=== PATIENT | male | born 1995 | race Caucasian/White ===

== ENCOUNTER 2023-10-16 09:50 | Emergency (ER) | payer SELFPAY ==
--- NOTE | ~2023-10-16 | US_ITS ---
EXAMINATION: US ABDOMEN LIMITED CLINICAL INFORMATION: Right upper quadrant tenderness. COMPARISON: None available. TECHNIQUE: Real-time imaging of the appendix, gallbladder and common bile duct FINDINGS: The gallbladder is normal appearing. No gallstones. The gallbladder wall is normal. No pericholecystic fluid. Common bile duct measures 0.3 cm. Appendix not seen. US/US abdomen limited IMPRESSION: Normal gallbladder. Appendix not seen.
--- NOTE | ~2023-10-16 | CT_ITS ---
EXAMINATION: CT ABDOMEN AND PELVIS WITH CONTRAST CLINICAL INFORMATION: Right lower quadrant tenderness, nausea and vomiting COMPARISON: None available. TECHNIQUE: Multidetector volumetric images were obtained from the superior aspect of the liver through the pubic symphysis following administration 85 mL of Omnipaque 350 intravenous contrast. Sagittal and coronal reformatted images were obtained on the technologist's workstation. Oral contrast: Yes This CT examination was performed using dose optimization techniques as appropriate, variously including the following: *Automated exposure control *Adjustment of mA and/or kV according to patient size (this includes techniques or standardized protocols for targeted exams where dose is matched to indication/reason for exam; i.e. extremities or head) *Use of iterative reconstruction technique DLP: 849 mGy-cm FINDINGS: LUNG BASES: The visualized lung bases are unremarkable. LIVER, GALLBLADDER, AND BILIARY TREE: The liver is normal in size, shape, and attenuation. No focal hepatic lesion or biliary ductal dilatation is present. The gallbladder is unremarkable with no evidence of radiopaque gallstones, gallbladder wall thickening, or obvious pericholecystic inflammatory changes. PANCREAS: Unremarkable. SPLEEN: Unremarkable. ADRENAL GLANDS: Unremarkable. KIDNEYS AND URETERS: The kidneys are normal in size, shape, and attenuation. No hydronephrosis, hydroureter, or calculi seen. Excreted contrast in both renal collecting systems. This lowers sensitivity for detection of small stone. No perinephric stranding. BLADDER: Unremarkable. GASTROINTESTINAL TRACT: The small and large bowel are unremarkable. The appendix is unremarkable. ABDOMINAL WALL: No significant hernia is appreciated. LYMPH NODES: Normal. VASCULAR: Unremarkable. PELVIC VISCERA: Unremarkable. OSSEOUS STRUCTURES: Unremarkable. CT/CT abdomen pelvis w IV con IMPRESSION: Unremarkable exam. Normal-appearing appendix. Fleischner guidelines were followed.
--- NOTE | 2023-10-16 09:56 | ED_ITS ---
HPI - General Adult General Chief complaint: Abdominal Pain Stated complaint: vomiting Time Seen by Provider: 10/16/23 09:55 Source: patient and family Mode of arrival: ambulatory Limitations: no limitations History of Present Illness ED Provider: omar KNOWLES narrative: Patient is a 28-year-old male with history of cannabinoid hyperemesis syndrome 8-10 years ago presenting to the emergency department with 2 days nausea, vomiting, and right upper quadrant abdominal pain. Denies diarrhea or constipation. Denies fevers. Denies chest pain, cough, dyspnea. No other sick family members at home. States pain began mid day on Thursday. Only had yogurt for breakfast that day. Denies history of abdominal surgeries in the past. Denies dysuria, hematuria, urgency or any other urinary symptoms. Denies back pain. has not been smoking marijuana until this august 07, but has been smoking multiple times a day since then and just stopped on Thursday when symptoms began. Symptoms improve with hot showers. MD complaint: Abdominal pain, vomiting Onset (ago): day(s) Location: abdomen Radiation: non-radiation Severity: moderate Severity scale (1-10): 5 Quality: aching Pain Consistency: colicky Relieving factors: none Exacerbating factors: none Associated symptoms: nausea/vomiting Treatments prior to arrival: none Related Data Previous Rx's ?Medication ?Instructions ?Recorded ondansetron 4 mg disintegrating 4 mg PO Q8H PRN nausea and 10/16/23 tablet vomiting #10 tabs Allergies Allergy/AdvReac Type Severity Reaction Status Date / Time amoxicillin [AMOXICILLIN] Allergy Unknown UNKNOWN Verified 10/16/23 10:02 Penicillins [PENICILLINS] Allergy Unknown UNKNOWN Verified 10/16/23 10:02 Review of Systems 2 Review of Systems: As per HPI. Yes all other systems are reviewed and are negative Constitutional: Constitutional: Reports as per HPI [facility] Social History Social History Advance Directives: No Advance Directives Information Provided: No Do you have a plan to hurt others: No Plan Physical Exam ED Vital Signs: Vital Signs - 24 hr 10/16/23 10:01 10/16/23 13:08 Temperature 98.1 F 98.4 F Pulse Rate 78 56 Respiratory Rate 16 22 H Blood Pressure 133/80 97/46 L Pulse Oximetry 98 98 Oxygen Delivery Method Room Air Room Air BMI result Body Mass Index 29.5 Vital signs have been reviewed and appear to be correct. Blood pressure normal. Heart rate normal. Respiratory rate normal. Temperature normal. Oxygen saturation normal. Const General: cooperative, healthy appearing and no acute distress Orientation/consciousness: oriented to person, oriented to place, oriented to time and patient oriented x3 Limitations: no limitations [facility] Head: Yes normocephalic and Yes atraumatic Ears: external ears normal General nose exam: Normal external nose present Face and sinus: Yes face symmetric Mouth: oropharynx normal and moist mucous membranes Throat: Yes uvula midline Eyes Pupils: Equal, round and reactive pupils present Neck Neck: Yes normal visual inspection and Yes supple Resp Effort & Inspection: normal respiratory effort and able to speak in complete sentences Auscultation: clear to auscultation bilaterally Cardio Rate: regular rate Rhythm: regular rhythm Heart sounds: S1 normal heart sound present and S2 normal heart sound present GI Inspection: Yes normal to inspection Palpation (GI): Soft to palpation, Tenderness to palpation present (GI) in the RLQ and in the RUQ, no guarding and No Rebound tenderness present Auscultation: normoactive bowel sounds General: Yes no CVA tenderness Back/Spine/Pelvis Back: no CVA tenderness Skin General skin exam: elasticity normal and turgor normal Neuro General: oriented to person, oriented to place, oriented to time, patient oriented x3, moves all extremities, no focal motor deficits and CN's II-XI intact bilaterally Cranial nerves: Yes Equal, round and reactive pupils present Cognition (Neuro): normal cognition Extrem General: Yes full ROM, Yes no pedal edema and Yes no calf tenderness Psych Mental Status: mental status grossly normal Affect: normal affect Thought process: Normal thought process present Medications Administered Discontinued Medications Generic Name Dose Route Start Last Admin Trade Name Bhakti PRN Reason Stop Dose Admin Sodium Chloride 1,000 mls @ 999 mls/hr 10/16/23 10:15 10/16/23 11:34 Ns IV 10/16/23 11:15 Infused .Q1H1M HIRO Infusion Iohexol 100 ml 10/16/23 13:43 10/16/23 13:44 Iohexol 350 Mg/Ml 100 Ml Infus..Btl IV 10/16/23 13:44 85 ml ONCE ONE Administration Morphine Sulfate 4 mg 10/16/23 10:12 10/16/23 10:29 Morphine Sulfate 4 Mg/Ml Cartridge IVPUSH 10/16/23 10:13 Not Given ONCE ONE Protocol Morphine Sulfate 4 mg 10/16/23 10:49 10/16/23 10:59 Morphine Sulfate 4 Mg/Ml Cartridge IVPUSH 10/16/23 10:50 4 mg ONCE ONE Administration Protocol Ondansetron HCl 4 mg 10/16/23 10:12 10/16/23 10:29 Ondansetron Hcl 4 Mg/2 Ml Vial IVPUSH 10/16/23 10:13 4 mg ONCE ONE Administration Medical Decision Making Medical Decision Making [facility] Narrative: Patient is a 28-year-old male with history of cannabinoid hyperemesis syndrome 8-10 years ago presenting to the emergency department with 2 days nausea, vomiting, and right upper quadrant abdominal pain. On exam patient is awake, A+Ox3, VS WNL, afebrile, normal neurological exam without focal deficits, physical exam findings as above. Given reported symptoms and physical exam findings, initial differential includes cholecystitis, appendicitis, CHS, gastritis, viral illness, cannabinoid hyperemesis syndrome. Labs notable for no leukocytosis, no anemia, mildly elevated Tbili, normal transaminases, negative troponin. Viral serology negative. Ultrasound notable for normal gallbladder and CBD, appendix not visualized. CT notable for unremarkable abdominal exam with normal appendix. My interpretation is in agreement with the radiologist's interpretation. Patient updated on results and all questions answered. Discussed with patient that he should refrain from using marijuana as this seems to exacerbate his symptoms. Discussed warm showers and topical capsaicin cream. Return precautions discussed. Patient verbalized understanding of and agreement with plan. Differential Diagnosis Differential Diagnoses: The differential diagnosis associated with the presentation includes As per [facility] Admission/Observation Consideration of admission/observation: Escalation of care including admission/observation considered Patient would have been admitted to the hospital had their work up had any findings where hospital admission was appropriate and their clinical presentation warranted hospital admission. Lab Data [facility] Lab Attestation statement: I reviewed the patient's lab results. As per [facility]. 10/16/23 10:08 10/16/23 10:08 Labs: Lab Results 10/16/23 10/16/23 Range/Units 10:08 10:48 WBC 10.8 (4.8-10.8) X10*3/uL RBC 5.38 (4.60-5.80) X10*6/uL Hgb 16.8 (14.0-18.0) g/dl Hct 47.6 (42.0-52.0) % MCV 88.5 (80.0-98.0) fL MCH 31.2 (27.0-33.0) pg MCHC 35.3 (31.0-36.0) g/dl RDW 13.1 (11.0-16.0) % Plt Count 218 (160-400) X10*3/uL MPV 11.6 (9.4-12.4) fL Immature Gran % (Auto) 0.3 (0.0-0.4) % Neut % (Auto) 78.3 H (45-73) % Lymph % (Auto) 16.0 L (20-40) % [place] % (Auto) 5.2 (2-11) % Eos % (Auto) 0.0 (0-4) % Baso % (Auto) 0.2 (0-2) % Lymph # (Auto) 1.7 (1.2-4.9) X10*3/uL [place] # (Auto) 0.6 (0.1-1.2) X10*3/uL Eos # (Auto) 0.0 (0.0-0.4) X10*3/uL Baso # (Auto) 0.0 (0.0-0.2) X10*3/uL Abs Immat Gran (auto) 0.03 (0.00-0.03) X10*3/uL Absolute Neuts (auto) 8.4 H (2.0-8.3) x10*3/uL Absolute Nucleated RBC 0.000 (0.0-0.012) X10*3/uL Nucleated RBC % (auto) 0.0 (0.0-0.2) /100WBC Sodium 141 (135-145) mmol/L Potassium 4.1 (3.3-5.1) mmol/L Chloride 103 (96-108) mmol/L Carbon Dioxide 26 (22-29) mmol/L Anion Gap 16 (12-20) BUN 19 H (9-16) mg/dL Creatinine 1.07 (0.5-1.4) mg/dL Estim Creat Clear Calc 138.3 Estimated GFR > 60 Random Glucose 113 (60-115) mg/dL Calcium 9.8 (8.4-10.2) mg/dL Total Bilirubin 1.3 H (0.0-1.0) mg/dL AST 17 (5-37) U/L ALT 25 (0-40) U/L Alkaline Phosphatase 72 (39-117) U/L Troponin I High Sens < 2.7 (<3.5-35.0) ng/L Total Protein 8.0 (6.5-8.0) g/dL Albumin 4.7 (3.5-5.0) g/dL Lipase 26 (8-78) U/L Influenza Type A (PCR) NEGATIVE (Negative) Influenza Type B (PCR) NEGATIVE (Negative) RSV RNA Qual (PCR) NEGATIVE (Negative) SARS-CoV-2 RNA (RT-PCR) NEGATIVE (Negative) Independent Interpretation I performed an independent interpretation of an: Ultrasound and CT Scan Interpretation: Normal gallbladder and CBD on U/S No evidence of appendicitis on CT A/P Radiology Impression Discussion of test interpretation with radiology: I have reviewed the radiologist's reading. Radiologist Impression: US/US abdomen limited IMPRESSION: Normal gallbladder. Appendix not seen. CT/CT abdomen pelvis w IV con IMPRESSION: Unremarkable exam. Normal-appearing appendix. Fleischner guidelines were followed. External Record Review External record reviewed: Inpatient record, Office record and Outpatient record Discharge Plan Discharge Clinical Impression: Nausea & vomiting Patient Disposition: Home, Self-Care Instructions: Acute Nausea and Vomiting (ED), Cyclic Vomiting Syndrome (ED) Additional Instructions: You were evaluated in the emergency department today for abdominal pain, nausea, and vomiting which is likely due to your cannabis use. We advised avoiding this to prevent ongoing symptoms. We recommend hot showers as well as topical capsaicin cream. You are being prescribed ondansetron which you can take every 8 hours as needed for nausea. Follow up with your primary care provider. Return to the ED with worsening abdominal pain, persistent vomiting, blood in your vomit or stool, fever or any other concerning symptoms. Prescriptions: New ondansetron 4 mg tablet,disintegrating 4 mg PO Q8H PRN (Reason: nausea and vomiting) Qty: 10 0RF Print Language: Citizen [place]
[2023-10-16 10:01] VITALS: BP 133/80; PULSE 78; RESP 16; TEMP 36.7; O2SAT 98; BMI 29.5
--- NOTE | 2023-10-16 10:12 | PC.NURSE ---
a&ox4. vss and up to date. nsr on the manager cardiac. pt presents to ED w/ nonstop vomiting and abd pain x 2 days. abd tender in RUQ upon palpation. pt also verbalizing decreased PO intake. denies diarrhea/hematochezia. pt currently not actively vomiting. 20gIV placed in the left AC - labs obtained/sent to lab. pt seen by ED provider/aware of plan of care moving forward. no sob/wob noted. respirations even/unlabored. plan of care ongoing. call pemberton placed within reach.
[2023-10-16 10:13] LABS: MANUAL DIFF FLAG NO
[2023-10-16 10:14] LABS: Basophils Percent Auto 0.2 % (0-2); Hematocrit 47.6 % (42.0-52.0); Hemoglobin 16.8 g/dl (14.0-18.0); Imm Gran Abs Auto 0.03 X10*3/uL (0.00-0.03); Imm Gran Pct Auto 0.3 % (0.0-0.4); Lymphocytes Absolute Auto 1.7 X10*3/uL (1.2-4.9); Mean Corpuscular HGB Conc 35.3 g/dl (31.0-36.0); Mean Corpuscular Hemoglobin 31.2 pg (27.0-33.0); Mean Corpuscular Volume 88.5 fL (80.0-98.0); Mean Platelet Volume 11.6 fL (9.4-12.4); Monocytes Absolute Auto 0.6 X10*3/uL (0.1-1.2); Monocytes Percent Auto 5.2 % (2-11); Neutrophils Absolute Auto 8.4 x10*3/uL (2.0-8.3); Neutrophils Percent Auto 78.3 % (45-73); Platelet Count 218 X10*3/uL (160-400); Red Blood Count 5.38 X10*6/uL (4.60-5.80); Red Cell Distribution Width 13.1 % (11.0-16.0); White Blood Count 10.8 X10*3/uL (4.8-10.8)
[2023-10-16 10:28] LABS: Alanine Aminotransferase 25 U/L (0-40); Albumin Level 4.7 g/dL (3.5-5.0); Alkaline Phosphatase 72 U/L (39-117); Anion Gap 16 (12-20); Aspartate Amino Transferase 17 U/L (5-37); Bilirubin Total 1.3 mg/dL (0.0-1.0); Blood Urea Nitrogen 19 mg/dL (9-16); Calcium 9.8 mg/dL (8.4-10.2); Carbon Dioxide 26 mmol/L (22-29); Chloride 103 mmol/L (96-108); Creatinine Clr Calc Pharmacy 138.3; Estimated Glomerular Filt Rate > 60; Glucose Random 113 mg/dL (60-115); Lipase 26 U/L (8-78); Potassium 4.1 mmol/L (3.3-5.1); Sodium 141 mmol/L (135-145)
[2023-10-16] MEDS: ondansetron HCL 4 MG/2 ML VIAL IVPUSH (10:29)
[2023-10-16] MEDS: 0.9 % Sodium Chloride 1,000 ML 999 ML IV (10:29)
[2023-10-16 10:37] LABS: Troponin-I High Sensitivity < 2.7 ng/L (<3.5-35.0)
--- NOTE | 2023-10-16 10:42 | PC.NURSE ---
IVF/medication administered per provider order. pt refused morphine - states that the pain was not that intense/didn't want it at this time. med returned to susu Hernandez RN.
[2023-10-16] MEDS: Morphine Sulfate 4 MG/ML CARTRIDGE IVPUSH (10:59)
--- NOTE | 2023-10-16 11:11 | PC.NURSE ---
despite previously refusing morphine administration. pt now c/o increased in abd pain. rating it a 10/10. provider notified/aware. medication administered per provider order. effectiveness pending. ultrasound being completed at this time.
[2023-10-16 11:33] LABS: Influenza A PCR NEGATIVE (Negative); Influenza B PCR NEGATIVE (Negative); Resp Syncy Virus RNA Qual PCR NEGATIVE (Negative); SARS COV2 PCR INHOUSE NEGATIVE (Negative)
[2023-10-16 13:08] VITALS: BP 97/46; PULSE 56; RESP 22; TEMP 36.9; O2SAT 98
[2023-10-16] MEDS: iohexoL 350 MG/ML 100 ML INFUS..BTL IV (13:44)
[2023-10-16 16:11] VITALS: BP 135/79; PULSE 59; RESP 18; O2SAT 99
[2023-10-16 16:17] VITALS: BP 135/79; PULSE 59; RESP 18; TEMP 36.9; O2SAT 99
== END 2023-10-16 16:17 | disposition home or self-care (01) ==
PROVIDERS: Registered Nurse Emergency; Emergency Provider Emergency Medicine
DX: R10.11 Right upper quadrant pain (principal); R11.2 Nausea with vomiting, unspecified; Z03.818 Encounter for observation for suspected exposure to other biological agents ruled out; Z79.899 Other long term (current) drug therapy
CPT/HCPCS: 0241U; 36415; 74177; 76705; 80053; 83690; 84484; 85025; 96361; 96374; 96375; 99284; J2270; J2405; Q9967

== ENCOUNTER 2023-10-17 13:32 | Emergency (ER) | payer SELFPAY ==
[2023-10-17 13:57] VITALS: BP 141/71; PULSE 64; RESP 26; TEMP 36.3; O2SAT 100; BMI 32.9
--- NOTE | 2023-10-17 13:57 | ED.NAVMDI ---
HPI - Nausea/Vomiting/Diarrhea General Chief complaint: Abdominal Pain Stated complaint: vomiting Time Seen by Provider: 10/17/23 21:26 Related Data Previous Rx's ?Medication ?Instructions ?Recorded ondansetron 4 mg disintegrating 4 mg PO Q8H PRN nausea and 10/16/23 tablet vomiting #10 tabs Allergies Allergy/AdvReac Type Severity Reaction Status Date / Time amoxicillin [AMOXICILLIN] Allergy Unknown UNKNOWN Verified 10/17/23 13:58 Penicillins [PENICILLINS] Allergy Unknown UNKNOWN Verified 10/17/23 13:58 [facility] Social History Social History Advance Directives: No Do you have a plan to hurt others: No Plan Physical Exam Vital Signs: Vital Signs: Last Vital Signs Temp 98.2 F 10/17/23 19:37 Pulse 71 10/17/23 19:37 Resp 18 10/17/23 19:37 BP 154/93 H 10/17/23 19:37 Pulse Ox 98 10/17/23 19:37 O2 Del Method Room Air 10/17/23 19:37 BMI result Body Mass Index 32.9 Course Course Course Narrative: This is a Rapid Medical Examination (RME) performed by Jenny Jason PA-C in triage. Full HPI, ROS, assessment and treatment plan per primary provider in the Main ED. 28-year-old male with history of cannabinoid hyperemesis syndrome 8-10 years ago presents to ED with 3 days nausea, vomiting, and right upper quadrant abdominal pain. seen here yest for same with unremarkable work up, discharged home with zofran. 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 reports previous daily marijuana use however has not smoked since Thursday (4 days ago) d/t symptoms. actively dry heaving in triage. ttp of epigastric region. no rebound or guarding. Plan: labs, UA, uds Reevaluation(s) Reevaluation #1: Patient left the ED without completing treatment. Medications Administered Discontinued Medications Generic Name Dose Route Start Last Admin Trade Name Freq PRN Reason Stop Dose Admin Ondansetron HCl 4 mg 10/17/23 13:58 10/17/23 14:01 Ondansetron Odt 4 Mg Tab.Rapdis TRANSLINGU 10/17/23 13:59 4 mg ONCE ONE Administration Medical Decision Making Medical Decision Making [facility] Narrative: eloped Lab Data 10/17/23 14:29 10/17/23 14:29 Labs: Lab Results 10/17/23 10/17/23 Range/Units 14:29 18:06 WBC 15.2 H (4.8-10.8) X10*3/uL RBC 5.45 (4.60-5.80) X10*6/uL Hgb 17.0 (14.0-18.0) g/dl Hct 47.8 (42.0-52.0) % MCV 87.7 (80.0-98.0) fL MCH 31.2 (27.0-33.0) pg MCHC 35.6 (31.0-36.0) g/dl RDW 13.0 (11.0-16.0) % Plt Count 227 (160-400) X10*3/uL MPV 11.4 (9.4-12.4) fL Immature Gran % (Auto) 0.6 H (0.0-0.4) % Neut % (Auto) 76.2 H (45-73) % Lymph % (Auto) 17.2 L (20-40) % [place] % (Auto) 4.9 (2-11) % Eos % (Auto) 0.6 (0-4) % Baso % (Auto) 0.5 (0-2) % Lymph # (Auto) 2.6 (1.2-4.9) X10*3/uL [place] # (Auto) 0.8 (0.1-1.2) X10*3/uL Eos # (Auto) 0.1 (0.0-0.4) X10*3/uL Baso # (Auto) 0.1 (0.0-0.2) X10*3/uL Abs Immat Gran (auto) 0.09 H (0.00-0.03) X10*3/uL Absolute Neuts (auto) 11.6 H (2.0-8.3) x10*3/uL Absolute Nucleated RBC 0.000 (0.0-0.012) X10*3/uL Nucleated RBC % (auto) 0.0 (0.0-0.2) /100WBC Sodium 139 (135-145) mmol/L Potassium 3.5 (3.3-5.1) mmol/L Chloride 105 (96-108) mmol/L Carbon Dioxide 21 L (22-29) mmol/L Anion Gap 17 (12-20) BUN 20 H (9-16) mg/dL Creatinine 1.06 (0.5-1.4) mg/dL Estim Creat Clear Calc 131.7 Estimated GFR > 60 Random Glucose 102 (60-115) mg/dL Calcium 9.9 (8.4-10.2) mg/dL Magnesium 1.9 (1.6-2.6) mg/dL Total Bilirubin 1.7 H (0.0-1.0) mg/dL AST 20 (5-37) U/L ALT 27 (0-40) U/L Alkaline Phosphatase 75 (39-117) U/L Total Protein 8.0 (6.5-8.0) g/dL Albumin 4.8 (3.5-5.0) g/dL Lipase 50 (8-78) U/L Urine Color Dark Yellow Urine Appearance Clear Urine pH 6.5 (5.0-9.0) Ur Specific [place] >= 1.030 H (1.005-1.025) Urine Protein Trace (Neg-Trace) mg/dL Urine Glucose (UA) Negative (Negative) mg/dL Urine Ketones 80 (Negative) mg/dL Urine Blood Negative (Negative) Urine Nitrite Negative (Negative) Ur Leukocyte Esterase Trace H (Negative) Urine RBC 0-2 (0-2) /HPF Urine WBC 0-5 (0-5) /HPF Ur Squamous Epith Cells 0-2 (0-2) /HPF Urine Bacteria None Seen (None Seen) Hyaline Casts 3-5 (0-2) /LPF Urine Opiates Screen POSITIVE H (Not Detect) Ur Buprenorphine Scrn Not Detected (Not Detect) ng/mL Ur Oxycodone Screen Not Detected (Not Detect) ng/mL Urine Methadone Screen Not Detected (Not Detect) ng/mL Urine Fentanyl Screen Not Detected (Not Detect) Ur Barbiturates Screen Not Detected (Not Detect) Ur Phencyclidine Scrn Not Detected (Not Detect) Ur Amphetamines Screen Not Detected (Not Detect) U Benzodiazepines Scrn Not Detected (Not Detect) Urine Cocaine Screen POSITIVE H (Not Detect) U Marijuana (THC) Screen POSITIVE H (Not Detect) Ethyl Alcohol < 10 mg/dL Discharge Plan Discharge Clinical Impression: Vomiting Patient Disposition: Left W/O Completing Treatment Prescriptions: No Action ondansetron 4 mg tablet,disintegrating 4 mg PO Q8H PRN (Reason: nausea and vomiting) Qty: 10 0RF Interventions: LWBS Worksheet Last Done: 10/17/23 22:10 Discharge Date/Time: 10/17/23 22:10 Print Language: Wallisian
[2023-10-17] MEDS: Ondansetron ODT 4 MG TAB.RAPDIS TRANSLINGU (14:01)
[2023-10-17 14:37] LABS: Basophils Absolute Auto 0.1 X10*3/uL (0.0-0.2); Basophils Percent Auto 0.5 % (0-2); Eosinophils Absolute Auto 0.1 X10*3/uL (0.0-0.4); Eosinophils Percent Auto 0.6 % (0-4); Hematocrit 47.8 % (42.0-52.0); Imm Gran Abs Auto 0.09 X10*3/uL (0.00-0.03); Imm Gran Pct Auto 0.6 % (0.0-0.4); Lymphocytes Absolute Auto 2.6 X10*3/uL (1.2-4.9); Lymphocytes Percent Auto 17.2 % (20-40); MANUAL DIFF FLAG NO; Mean Corpuscular HGB Conc 35.6 g/dl (31.0-36.0); Mean Corpuscular Hemoglobin 31.2 pg (27.0-33.0); Mean Corpuscular Volume 87.7 fL (80.0-98.0); Mean Platelet Volume 11.4 fL (9.4-12.4); Monocytes Absolute Auto 0.8 X10*3/uL (0.1-1.2); Monocytes Percent Auto 4.9 % (2-11); Neutrophils Absolute Auto 11.6 x10*3/uL (2.0-8.3); Neutrophils Percent Auto 76.2 % (45-73); Platelet Count 227 X10*3/uL (160-400); Red Blood Count 5.45 X10*6/uL (4.60-5.80); White Blood Count 15.2 X10*3/uL (4.8-10.8)
[2023-10-17 15:02] LABS: Alanine Aminotransferase 27 U/L (0-40); Albumin Level 4.8 g/dL (3.5-5.0); Alkaline Phosphatase 75 U/L (39-117); Anion Gap 17 (12-20); Aspartate Amino Transferase 20 U/L (5-37); Bilirubin Total 1.7 mg/dL (0.0-1.0); Blood Urea Nitrogen 20 mg/dL (9-16); Calcium 9.9 mg/dL (8.4-10.2); Carbon Dioxide 21 mmol/L (22-29); Chloride 105 mmol/L (96-108); Creatinine Clr Calc Pharmacy 131.7; Estimated Glomerular Filt Rate > 60; Glucose Random 102 mg/dL (60-115); Lipase 50 U/L (8-78); Magnesium 1.9 mg/dL (1.6-2.6); Potassium 3.5 mmol/L (3.3-5.1); Sodium 139 mmol/L (135-145)
[2023-10-17 15:03] LABS: Ethanol < 10 mg/dL
[2023-10-17 17:22] VITALS: BP 153/93; PULSE 71; RESP 16; TEMP 37; O2SAT 100
[2023-10-17 18:13] LABS: Appearance Urine Clear; Color Urine Dark Yellow; Glucose Urine UA Negative (Negative); Leukocyte Esterase Urine Trace (Negative); Nitrite Urine Negative (Negative); PH 6.5 (5.0-9.0); Specific Gravity - Urine >= 1.030 (1.005-1.025); UMIC TRIGGER UACC YES; Urine Blood Negative (Negative); Urine Ketones 80 mg/dL (Negative); Urine Protein Trace mg/dL (Neg-Trace)
[2023-10-17 18:23] LABS: Amphetamine Screen Urine Not Detected (Not Detect); Barbiturates, Urine Not Detected (Not Detect); Benzodiazepines Screen Urine Not Detected (Not Detect); Buprenorphine Scr Not Detected (Not Detect); Cannabinoid Screen Urine POSITIVE (Not Detect); Cocaine Screen Urine POSITIVE (Not Detect); Fentanyl, urine Not Detected (Not Detect); Methadone Screen, Urine Not Detected (Not Detect); Opiate Screen Urine POSITIVE (Not Detect); Oxycodone Screen Urine Not Detected (Not Detect); Phencyclidine Screen Urine Not Detected (Not Detect)
[2023-10-17 18:26] LABS: Bacteria Urine None Seen (None Seen); RBC Urine 0-2 /HPF (0-2); Squamous Epithelial Cell Urine 0-2 /HPF (0-2); WBC Urine 0-5 /HPF (0-5)
[2023-10-17 19:37] VITALS: BP 154/93; PULSE 71; RESP 18; TEMP 36.8; O2SAT 98
--- NOTE | 2023-10-17 21:59 | PC.NURSE ---
Pt requests IV removal as he wants to go home I have been here too long . I just want to go home. Educated on importance of staying however he requests to leave at this time. IV removed. P trefeused vitals
== END 2023-10-17 22:10 | disposition left against medical advice (07) ==
PROVIDERS: Physician Assistant Medical; Emergency Provider Emergency Medicine
DX: R11.2 Nausea with vomiting, unspecified (principal); R10.11 Right upper quadrant pain; F12.90 Cannabis use, unspecified, uncomplicated; Z79.899 Other long term (current) drug therapy
CPT/HCPCS: 36415; 80053; 80307; 81001; 83690; 83735; 85025; 99283; 99284

== ENCOUNTER 2023-10-19 08:05 | Emergency (ER) | payer SELFPAY ==
[2023-10-19 08:07] VITALS: BP 157/106; PULSE 58; RESP 16; TEMP 36.8; O2SAT 98; BMI 29.5
[2023-10-19] MEDS: Ondansetron ODT 4 MG TAB.RAPDIS TRANSLINGU (08:13)
[2023-10-19 09:14] LABS: MANUAL DIFF FLAG NO
[2023-10-19 09:22] LABS: Basophils Percent Auto 0.3 % (0-2); Eosinophils Percent Auto 0.1 % (0-4); Hematocrit 47.9 % (42.0-52.0); Hemoglobin 16.7 g/dl (14.0-18.0); Imm Gran Abs Auto 0.05 X10*3/uL (0.00-0.03); Imm Gran Pct Auto 0.4 % (0.0-0.4); Lymphocytes Absolute Auto 1.6 X10*3/uL (1.2-4.9); Lymphocytes Percent Auto 12.7 % (20-40); Mean Corpuscular HGB Conc 34.9 g/dl (31.0-36.0); Mean Corpuscular Hemoglobin 31.3 pg (27.0-33.0); Mean Corpuscular Volume 89.7 fL (80.0-98.0); Mean Platelet Volume 11.7 fL (9.4-12.4); Monocytes Absolute Auto 0.5 X10*3/uL (0.1-1.2); Monocytes Percent Auto 3.6 % (2-11); Neutrophils Absolute Auto 10.4 x10*3/uL (2.0-8.3); Neutrophils Percent Auto 82.9 % (45-73); Platelet Count 219 X10*3/uL (160-400); Red Blood Count 5.34 X10*6/uL (4.60-5.80); Red Cell Distribution Width 12.8 % (11.0-16.0); White Blood Count 12.6 X10*3/uL (4.8-10.8)
[2023-10-19 09:35] LABS: Alanine Aminotransferase 24 U/L (0-40); Albumin Level 4.5 g/dL (3.5-5.0); Alkaline Phosphatase 72 U/L (39-117); Anion Gap 13 (12-20); Aspartate Amino Transferase 18 U/L (5-37); Bilirubin Total 1.3 mg/dL (0.0-1.0); Blood Urea Nitrogen 15 mg/dL (9-16); Carbon Dioxide 24 mmol/L (22-29); Chloride 106 mmol/L (96-108); Creatinine Clr Calc Pharmacy 142.3; Estimated Glomerular Filt Rate > 60; Glucose Random 112 mg/dL (60-115); Sodium 139 mmol/L (135-145); Total Protein 7.7 g/dL (6.5-8.0)
--- NOTE | 2023-10-19 11:08 | MHC.EDTECH ---
This tech attempted to collect urine sample from patient. Patient stated unable to provide sample at this time. Hospital gown provided to patient, with a urinal at bedside as well as a urine cup with instructions to provide sample as soon as they felt able.
--- NOTE | 2023-10-19 11:14 | ED.GENADULT ---
HPI - General Adult General Chief complaint: Abdominal Pain Stated complaint: vomiting Time Seen by Provider: 10/19/23 11:01 Source: patient and family Mode of arrival: ambulatory Limitations: no limitations History of Present Illness ED Provider: Dr. Blount Related Data Previous Rx's ?Medication ?Instructions ?Recorded ondansetron 4 mg disintegrating 4 mg PO Q8H PRN nausea and 10/16/23 tablet vomiting #10 tabs metoclopramide HCl 10 mg tablet 10 mg PO Q6H PRN nausea and 10/19/23 (Reglan) vomiting #14 tabs Allergies Allergy/AdvReac Type Severity Reaction Status Date / Time amoxicillin [AMOXICILLIN] Allergy Unknown UNKNOWN Verified 10/19/23 08:10 Penicillins [PENICILLINS] Allergy Unknown UNKNOWN Verified 10/19/23 08:10 [facility] Social History Social History Advance Directives: No Do you have a plan to hurt others: No Plan Physical Exam ED Vital Signs: Vital Signs - 24 hr 10/19/23 08:07 10/19/23 11:52 10/19/23 14:18 Temperature 98.3 F 98.9 F 98.4 F Pulse Rate 58 67 65 Respiratory Rate 16 16 18 Blood Pressure 157/106 H 133/68 167/100 H Pulse Oximetry 98 96 99 Oxygen Delivery Method Room Air Room Air BMI result Body Mass Index 29.5 Course Reevaluation(s) Reevaluation #1: physician observation started at 12:30. Patient continues to vomit, will continue with medications and hydration. Patient needs time to see if he improves or will need to be admitted Time: 12:38 Reevaluation #2: end of physician observation patient no longer nauseated will dc on reglan Time: 15:20 Medications Administered Discontinued Medications Generic Name Dose Route Start Last Admin Trade Name Freq PRN Reason Stop Dose Admin Diphenhydramine HCl 25 mg 10/19/23 11:14 10/19/23 11:26 Diphenhydramine Hcl 50 Mg/Ml Vial IVPUSH 10/19/23 11:15 25 mg ONCE ONE Administration Haloperidol Lactate 5 mg 10/19/23 11:14 10/19/23 11:27 Haloperidol Lactate 5 Mg/Ml Vial IVPUSH 10/19/23 11:15 5 mg STAT STA Administration Sodium Chloride 1,000 mls @ 500 mls/hr 10/19/23 11:15 10/19/23 13:00 Ns IVCONT 10/19/23 13:14 Infused .Q2H HIRO Infusion Sodium Chloride 1,000 mls @ 500 mls/hr 10/19/23 12:45 10/19/23 13:05 Ns IVCONT 10/19/23 14:44 500 mls/hr .Q2H HIRO Administration Metoclopramide HCl 10 mg 10/19/23 12:38 10/19/23 13:02 Metoclopramide Hcl 10 Mg/2 Ml Vial IVPUSH 10/19/23 12:39 10 mg ONCE ONE Administration Ondansetron HCl 4 mg 10/19/23 08:12 10/19/23 08:13 Ondansetron Odt 4 Mg Tab.Rapdis TRANSLINGU 10/19/23 08:13 4 mg ONCE ONE Administration Ondansetron HCl 4 mg 10/19/23 11:16 10/19/23 11:26 Ondansetron Hcl 4 Mg/2 Ml Vial IVPUSH 10/19/23 11:17 4 mg ONCE ONE Administration Medical Decision Making Differential Diagnosis Differential Diagnoses: The differential diagnosis associated with the presentation includes (cyclical vomiting, marijuana abuse, dehydration) Admission/Observation Consideration of admission/observation: Escalation of care including admission/observation considered (upon arrival patient considered for admission) Lab Data 10/19/23 09:06 10/19/23 09:06 Labs: Lab Results 10/19/23 10/19/23 Range/Units 09:06 12:46 WBC 12.6 H (4.8-10.8) X10*3/uL RBC 5.34 (4.60-5.80) X10*6/uL Hgb 16.7 (14.0-18.0) g/dl Hct 47.9 (42.0-52.0) % MCV 89.7 (80.0-98.0) fL MCH 31.3 (27.0-33.0) pg MCHC 34.9 (31.0-36.0) g/dl RDW 12.8 (11.0-16.0) % Plt Count 219 (160-400) X10*3/uL MPV 11.7 (9.4-12.4) fL Immature Gran % (Auto) 0.4 (0.0-0.4) % Neut % (Auto) 82.9 H (45-73) % Lymph % (Auto) 12.7 L (20-40) % Thayer % (Auto) 3.6 (2-11) % Eos % (Auto) 0.1 (0-4) % Baso % (Auto) 0.3 (0-2) % Lymph # (Auto) 1.6 (1.2-4.9) X10*3/uL Thayer # (Auto) 0.5 (0.1-1.2) X10*3/uL Eos # (Auto) 0.0 (0.0-0.4) X10*3/uL Baso # (Auto) 0.0 (0.0-0.2) X10*3/uL Abs Immat Gran (auto) 0.05 H (0.00-0.03) X10*3/uL Absolute Neuts (auto) 10.4 H (2.0-8.3) x10*3/uL Absolute Nucleated RBC 0.000 (0.0-0.012) X10*3/uL Nucleated RBC % (auto) 0.0 (0.0-0.2) /100WBC Sodium 139 (135-145) mmol/L Potassium 4.0 (3.3-5.1) mmol/L Chloride 106 (96-108) mmol/L Carbon Dioxide 24 (22-29) mmol/L Anion Gap 13 (12-20) BUN 15 (9-16) mg/dL Creatinine 1.04 (0.5-1.4) mg/dL Estim Creat Clear Calc 142.3 Estimated GFR > 60 Random Glucose 112 (60-115) mg/dL Calcium 10.0 (8.4-10.2) mg/dL Total Bilirubin 1.3 H (0.0-1.0) mg/dL AST 18 (5-37) U/L ALT 24 (0-40) U/L Alkaline Phosphatase 72 (39-117) U/L Total Protein 7.7 (6.5-8.0) g/dL Albumin 4.5 (3.5-5.0) g/dL Urine Color Yellow Urine Appearance Clear Urine pH 7.0 (5.0-9.0) Ur Specific [place] 1.020 (1.005-1.025) Urine Protein Negative (Neg-Trace) mg/dL Urine Glucose (UA) Negative (Negative) mg/dL Urine Ketones 15 (Negative) mg/dL Urine Blood Negative (Negative) Urine Nitrite Negative (Negative) Ur Leukocyte Esterase Negative (Negative) Independent Historian Clinical information obtained from an independent historian. History obtained from or confirmed by: Spouse Tests considered The following testing was considered but not selected: CT of abdomen considered but abdominal exam non focal and patient with a prior history Chronic Conditions Patient?s care impacted by: Other (marijuana use) Discharge Plan Discharge Clinical Impression: Cyclical vomiting Patient Disposition: Home, Self-Care Instructions: Acute Nausea and Vomiting (ED) Prescriptions: New metoclopramide HCl [Reglan] 10 mg tablet 10 mg PO Q6H PRN (Reason: nausea and vomiting) Qty: 14 0RF No Action ondansetron 4 mg tablet,disintegrating 4 mg PO Q8H PRN (Reason: nausea and vomiting) Qty: 10 0RF Referrals: Physician,None [Primary Care Provider] - 1 week Print Language: [place]
[2023-10-19] MEDS: ondansetron HCL 4 MG/2 ML VIAL IVPUSH (11:26)
[2023-10-19] MEDS: diphenhydrAMINE HCL 50 MG/ML VIAL 25 MG IVPUSH (11:26)
[2023-10-19] MEDS: Haloperidol Lactate 5 MG/ML VIAL IVPUSH (11:27)
[2023-10-19] MEDS: 0.9 % Sodium Chloride 1,000 ML 500 ML IVCONT ×2 (11:30→13:05)
[2023-10-19 11:52] VITALS: BP 133/68; PULSE 67; RESP 16; TEMP 37.2; O2SAT 96
[2023-10-19 12:52] LABS: Appearance Urine Clear; Color Urine Yellow; Glucose Urine UA Negative (Negative); Leukocyte Esterase Urine Negative (Negative); Nitrite Urine Negative (Negative); Urine Blood Negative (Negative); Urine Ketones 15 mg/dL (Negative); Urine Protein Negative (Neg-Trace)
[2023-10-19] MEDS: Metoclopramide HCl 10 MG/2 ML VIAL IVPUSH (13:02)
[2023-10-19 14:18] VITALS: BP 167/100; PULSE 65; RESP 18; TEMP 36.9; O2SAT 99
--- NOTE | 2023-10-19 14:24 | PC.NURSE ---
patient ambulated to bathroom with steady gait
[2023-10-19 15:30] VITALS: BP 154/76; PULSE 60; RESP 14; TEMP 37; O2SAT 99
== END 2023-10-19 15:38 | disposition home or self-care (01) ==
PROVIDERS: Emergency Provider Emergency Medicine
DX: R11.15 Cyclical vomiting syndrome unrelated to migraine (principal); R11.2 Nausea with vomiting, unspecified; Z79.899 Other long term (current) drug therapy
CPT/HCPCS: 36415; 80053; 81003; 85025; 96361; 96374; 96375; 99284; J1200; J1630; J2405; J2765